=== PATIENT | female | born 1940 | race Caucasian/White ===

== ENCOUNTER 2016-12-30 05:33 | Day surgery (SDC) | payer MEDICARE, OTHER, SELFPAY ==
[2016-12-30] MEDS ORDERED: Midazolam 1 MG/ML 2 ML SDV ONE (06:17)
[2016-12-30] MEDS ORDERED: fentaNYL 100 MCG/2 ML SDV ONE (06:18)
[2016-12-30] MEDS ORDERED: fentaNYL 100 MCG/2 ML SDV IV ONE ×3 (06:31→16:10)
[2016-12-30] MEDS ORDERED: Midazolam 1 MG/ML 2 ML SDV IV ONE ×7 (06:32→16:10)
[2016-12-30] MEDS ORDERED: Sodium Chloride 0.9% 10 ML Syringe FLUSH PRN (07:00)
[2016-12-30] MEDS ORDERED: Dextrose 5%-0.45% NaCl 1,000 ML IV SCH (07:00)
--- NOTE | 2016-12-30 08:27 | OR ---
DATE: 12/30/2016 PROCEDURES: Total colonoscopy and cold snare polypectomy. INSTRUMENT USED: CF-H180 AL Olympus video colonoscope. PREMEDICATIONS: Fentanyl 100 mcg intravenous, Versed 4 mg intravenous. Nasal O2 cannula. The procedure was done under pulse oximetry, BP recording, and joint cleaning machine operator. INDICATION: The patient with previous right colon cancer resection and multiple _polyps.. Colonoscopy examination is done for detection of any polypoid lesions and removal, endoscopic hemostasis therapy if needed. DESCRIPTION OF PROCEDURE: Initial rectal exam showed anal sphincter to be a bit lax Rigid anoscopy showed small internal hemorrhoids without bleeding from them. The colonoscope was passed with ease. Numerous scattered diverticula were noted in the colon more so in the distal left colon along with deformity. The scope was passed with ease up to the area of previous surgery, photographs were taken of the area, no bleeding was noted from any of the visualized areas at the commencement of the examination. No vascular ectasia. No large isolated ulcerations seen. No evidence of diffuse inflammatory bowel disease in the form of friability, contact bleeding, or ulcerations. Probing the proximal sides of folds and flexures, using adequate distention and clearing up the stool material, withdrawal of the scope was made. The examination was compromised in a few areas due to the presence of adherent solid fecal material that could not be aspirated clear. In the sigmoid colon at around 18 cm proximal to the anal verge, more than 1 cm sized sessile polyp was noted, photographs were taken, snare polypectomy was done, the tissues were retrieved and sent for histopathology. No bleeding was noted from any of the visualized areas at the completion of examination. IMPRESSION: 1. Internal hemorrhoids. 2. Diverticulosis. 3. Sigmoid colonic polyp. The patient tolerated the procedure well. [facility] /[id number] ALEXIS
--- NOTE | 2016-12-30 08:53 | LETTER ---
12/30/2016 Jennifer Mane [employer]ANK [employer]ACHINE [employer]CH[employer]IC [address], [address] [place] [address] RE: DAPHNE MILLY Warren : 1940 Dear Ms. Mane: Ms. Milly Ramachandranjethroespinoza had colonoscopic examination done this morning and she tolerated the procedure well. I herewith send a copy of the endoscopy note and photographs for your review. Thank you. Sincerely, [facility] /[id number]
[2016-12-30 10:49] VITALS: BP 105/65
== END 2017-01-04 09:15 | disposition home or self-care (01) ==
LOC: DL.ENDO 05:33
PROVIDERS: ATTEND Internal Medicine Gastroenterology
DX: Z12.11 Encounter for screening for malignant neoplasm of colon (principal); D12.5 Benign neoplasm of sigmoid colon; K64.8 Other hemorrhoids; I10 Essential (primary) hypertension; E66.9 Obesity, unspecified; E78.5 Hyperlipidemia, unspecified; E11.9 Type 2 diabetes mellitus without complications; Z90.49 Acquired absence of other specified parts of digestive tract
CPT/HCPCS: 45385; J2250; J3010; J7042; 88305

== ENCOUNTER 2018-03-03 07:06 | Day surgery (SDC) | payer MEDICARE, MEDICAID ==
[~2018-03-03 07:06] MED LIST: Dextrose 5%-0.45% NaCl 1,000 ML IV SCH; Midazolam 1 MG/ML 2 ML SDV ONE; Sodium Chloride 0.9% 10 ML Syringe FLUSH PRN; fentaNYL 100 MCG/2 ML SDV ONE
[2018-03-03] MEDS ORDERED: fentaNYL 100 MCG/2 ML SDV IV ONE ×3 (07:07→07:50)
[2018-03-03] MEDS ORDERED: Midazolam 1 MG/ML 2 ML SDV IV ONE ×6 (07:07→08:12)
--- NOTE | 2018-03-03 09:06 | OR ---
DATE: 03/03/2018 PROCEDURES PERFORMED: Total colonoscopy, NBI, and cold snare polypectomy. INSTRUMENT USED: PCF-H180AL Olympus videocolonoscope. PREMEDICATIONS: Fentanyl 100 mcg intravenous and Versed 3 mg intravenous. Nasal O2 cannula. The procedure was done under pulse oximetry, BP recording, and radiation monitor. INDICATION: The patient with previous colon resection for cancer and sessile sigmoid polyp removed before, recently found to be anemic. Colonoscopic examination is done for detection of any polypoid lesions and removal, endoscopic hemostasis therapy if needed. DESCRIPTION OF PROCEDURE: Initial rectal exam was unremarkable. Rigid anoscopy was normal. The colonoscope was passed with ease up to the area of cecum, area of previous surgical resection noted, photographs were taken. No bleeding was noted from any of the visualized areas at the commencement of the examination. In the distal rectum, a 5 mm sized benign-appearing polyp was noted, photograph was taken, NBI views were obtained, cold snare polypectomy was done, the tissue was retrieved and sent for histopathology. Few diverticula were noted in the distal left colon along with significant deformity. No vascular ectasia. No large isolated ulcerations seen. No evidence of diffuse inflammatory bowel disease in the form of friability, contact bleeding, or ulcerations. Probing the proximal sides of folds and flexures, using adequate distention and clearing of the stool material, withdrawal of the scope was made. No bleeding was noted from any of the visualized areas at the completion of examination. IMPRESSION: 1. Rectal polyp. 2. Diverticulosis. The patient tolerated the procedure well. [facility] /[id number]
[2018-03-03 10:39] VITALS: BP 125/59
--- NOTE | 2018-03-03 12:07 | LETTER ---
03/03/2018 Jennifer Mane [employer] EDGE BEVELER [address], [address] [place] [address] RE: DAPHNESALVATOREMILLY E : 1940 Dear Ms. Mane: Ms. Milly Ramachandranjtehroespinoza had colonoscopic examination done this morning and she tolerated the procedure well. I herewith send a copy of the endoscopy note and photographs for your review. Thank you. Sincerely, [facility] /[id number]
== END 2018-03-03 10:24 | disposition home or self-care (01) ==
LOC: DL.ENDO 07:06
PROVIDERS: ATTEND Internal Medicine Gastroenterology
DX: D64.9 Anemia, unspecified (principal); D12.8 Benign neoplasm of rectum; K57.30 Diverticulosis of large intestine without perforation or abscess without bleeding; I10 Essential (primary) hypertension; E11.9 Type 2 diabetes mellitus without complications; E66.09 Other obesity due to excess calories; C18.9 Malignant neoplasm of colon, unspecified; E78.5 Hyperlipidemia, unspecified; F41.1 Generalized anxiety disorder; Z86.010 Personal history of colon polyps; Z90.49 Acquired absence of other specified parts of digestive tract
CPT/HCPCS: 45385; J2250; J3010; J7042

== ENCOUNTER 2024-07-11 10:11 | Inpatient (IN) | payer MEDICARE, MEDICAID ==
[2024-07-11 10:38] LABS: HEMATOCRIT 40.7 % (37.0-47.0); HEMOGLOBIN 13.5 g/dL (12.0-16.0); MEAN CORPUSCULAR HEMOGLOBIN 29.3 pg (27.0-34.0); MEAN CORPUSCULAR HGB CONC 33.2 g/dL (33.0-35.0); MEAN CORPUSCULAR VOLUME 88.3 fL (80-100); PLATELET COUNT,PLT 245 10^3/uL (150-450); RED BLOOD CELL COUNT 4.61 10^6/uL (4.2-5.4); WHITE BLOOD CELL COUNT,WBC 8.6 10^3/uL (5.0-10.0)
[2024-07-11 10:52] LABS: BASOPHILS PERCENT AUTO 0.3 % (0.0-1.0); LYMPHOCYTES PERCENT AUTO 14.7 % (20.5-50.1); MONOCYTES PERCENT AUTO 12.6 % (2-8); NEUTROPHILS PERCENT AUTO 70.4 % (42.2-75.2)
[2024-07-11 10:55] LABS: INR 1.1 (0.9-1.2)
[2024-07-11 10:56] LABS: APPEARANCE,URINE CLOUDY (CLEAR); BILIRUBIN,URINE NEGATIVE (NEGATIVE); COLOR,URINE YELLOW (YELLOW); GLUCOSE,URINE NEGATIVE (NEGATIVE); KETONES,URINE NEGATIVE (NEGATIVE); LEUKOCYTE ESTERASE,URINE LARGE (NEGATIVE); NITRITE,URINE NEGATIVE (NEGATIVE); OCCULT BLOOD,URINE MODERATE (NEGATIVE); PH,URINE 5.5 (5.0-9.0); PROTEIN,URINE 100 (NEGATIVE); UROBILINOGEN,URINE 0.2 mg/dL (0.2-1.0)
[2024-07-11 10:56] LABS: C-REACTIVE PROTEIN 10.78 ng/dL (<=0.50); MAGNESIUM 1.7 mg/dL (1.8-2.4)
[2024-07-11 11:01] LABS: A/G RATIO 0.47; ALANINE AMINOTRANSFERASE,ALT 23 U/L (14-59); ALBUMIN 2.3 g/dL (3.4-5.0); ALKALINE PHOSPHATASE 69 U/L (46-116); ANION GAP 14.3 mEq/L (7-13); ASPARTATE AMNIOTRANSFERASE,AST 27 U/L (15-37); BLOOD UREA NITROGEN,BUN 33 mg/dL (7-18); BUN/CREATININE RATIO 27.5 (No establ ref range); CALCIUM 9.2 mg/dL (8.5-10.1); CARBON DIOXIDE,CO2 28 mmol/L (21-32); CHLORIDE,CL 96 mmol/L (98-107); ESTIMATED GFR 45 mL/min (>=60); GLUCOSE RANDOM 239 mg/dL (70-99); POTASSIUM,K 3.3 mmol/L (3.5-5.1); PROTEIN TOTAL,TP 7.2 g/dL (6.4-8.2); SODIUM,NA 135 mmol/L (136-145)
[2024-07-11 11:06] LABS: LACTIC ACID 1.9 mmol/L (0.4-2.0)
[2024-07-11] MEDS: Sodium Chloride 0.9% 1,000 ML IV ONE (11:20)
[2024-07-11] MEDS: Potassium Chloride 10 MEQ Tab.ER PO ONE (11:23)
[2024-07-11 11:30] LABS: BASOPHILS PERCENT MAN 1; EOSINOPHILS PERCENT MAN 4 % (1-3); GIANT PLATELETS FEW; LYMPHOCYTES PERCENT MAN 10 % (20-50); MONOCYTES PERCENT MAN 10 % (2-8); PLATELET COUNT ESTIMATE ADEQUATE; SEG NEUTROPHILS PERCENT MAN 75 % (42-75)
[2024-07-11 11:37] LABS: AMORPHOUS SEDIMENT,URINE FEW /HPF (NOT SEEN); BACTERIA,URINE FEW /HPF (0-FEW/HPF); EPITHELIAL CELLS,URINE MODERATE /HPF (NOT SEEN); MUCUS,URINE FEW /LPF (NOT SEEN); WBC,URINE PACKED /HPF (0-5/HPF)
[2024-07-11] MEDS ORDERED: Polyethylene Glycol 3350 Powder 17 GM Packet PO PRN (13:07)
[2024-07-11] MEDS ORDERED: Acetaminophen 325 MG Tab PO PRN (13:07)
[2024-07-11] MEDS ORDERED: Ondansetron 4 MG/2 ML SDV IVPUSH PRN (13:07)
[2024-07-11] MEDS ORDERED: Docusate Sodium 100 MG Cap PO PRN (13:07)
[2024-07-11] MEDS: cefTRIAXone 1 GM Vial IVPUSH SCH (14:49)
[2024-07-11] MEDS: Pantoprazole 40 MG Vial IVPUSH SCH (14:49)
[2024-07-11] MEDS: Enoxaparin 40 MG/0.4 ML Syringe SUBCUT SCH (14:49)
[2024-07-11] MEDS: Magnesium Sulfate/Water Premix 2 GM in Premix Bag 1 BAG IV ONE (14:49)
[2024-07-11] MEDS: Sodium Chloride 0.9% 1,000 ML IV SCH (15:08)
[2024-07-12 06:05] LABS: EOSINOPHILS PERCENT AUTO 3.1 % (1.0-3.0); HEMATOCRIT 36.8 % (37.0-47.0); HEMOGLOBIN 12.1 g/dL (12.0-16.0); MEAN CORPUSCULAR HEMOGLOBIN 29.4 pg (27.0-34.0); MEAN CORPUSCULAR HGB CONC 32.9 g/dL (33.0-35.0); MEAN CORPUSCULAR VOLUME 89.3 fL (80-100); NEUTROPHILS PERCENT AUTO 73.7 % (42.2-75.2); PLATELET COUNT,PLT 232 10^3/uL (150-450); RED BLOOD CELL COUNT 4.12 10^6/uL (4.2-5.4); WHITE BLOOD CELL COUNT,WBC 8.1 10^3/uL (5.0-10.0)
[2024-07-12 06:16] LABS: BASOPHILS PERCENT AUTO 0.2 % (0.0-1.0)
[2024-07-12 06:26] LABS: ALBUMIN 1.9 g/dL (3.4-5.0); ANION GAP 10.6 mEq/L (7-13); BILIRUBIN TOTAL 0.6 mg/dL (0.2-1.0); BUN/CREATININE RATIO 27.5 (No establ ref range); C-REACTIVE PROTEIN 7.8 ng/dL (<=0.50); CALCIUM 8.4 mg/dL (8.5-10.1); CREATININE 0.91 mg/dL (0.55-1.02); EST CRCL DRUG DOSING (CG) 48.09 mL/min; MAGNESIUM 1.9 mg/dL (1.8-2.4); POTASSIUM,K 3.6 mmol/L (3.5-5.1); PROTEIN TOTAL,TP 6.2 g/dL (6.4-8.2)
[2024-07-12 06:27] LABS: A/G RATIO 0.44
[2024-07-12] MEDS: REMDESIVIR 200 MG in Sodium Chloride 0.9% 250 ML IV ONE (07:38)
[2024-07-12] MEDS: Dexamethasone 6 MG TABLET PO SCH (07:39)
[2024-07-12] MEDS: Azithromycin 500 MG in Sodium Chloride 0.9% 250 ML IV SCH (09:44)
[2024-07-12] MEDS: cefTRIAXone 1 GM Vial IVPUSH SCH (09:45)
[2024-07-12] MEDS: guaiFENesin 600 MG Tab.ER PO ONE (10:18)
[2024-07-12] MEDS: guaiFENesin 600 MG Tab.ER PO SCH (21:43)
[2024-07-13] MEDS: REMDESIVIR 100 MG in Sodium Chloride 0.9% 100 ML IV SCH (05:43)
[2024-07-13 06:24] LABS: HEMATOCRIT 35.1 % (37.0-47.0); HEMOGLOBIN 11.5 g/dL (12.0-16.0); MEAN CORPUSCULAR HEMOGLOBIN 29.2 pg (27.0-34.0); MEAN CORPUSCULAR HGB CONC 32.8 g/dL (33.0-35.0); MEAN CORPUSCULAR VOLUME 89.1 fL (80-100); PLATELET COUNT,PLT 253 10^3/uL (150-450); RED BLOOD CELL COUNT 3.94 10^6/uL (4.2-5.4); WHITE BLOOD CELL COUNT,WBC 7.4 10^3/uL (5.0-10.0)
[2024-07-13 06:27] LABS: LYMPHOCYTES PERCENT AUTO 9.6 % (20.5-50.1); MONOCYTES PERCENT AUTO 12.6 % (2-8); NEUTROPHILS PERCENT AUTO 77.7 % (42.2-75.2)
[2024-07-13 06:28] LABS: BASOPHILS PERCENT AUTO 0.1 % (0.0-1.0)
[2024-07-13 06:48] LABS: ALBUMIN 1.9 g/dL (3.4-5.0); ANION GAP 12.1 mEq/L (7-13); BILIRUBIN TOTAL 0.4 mg/dL (0.2-1.0); CALCIUM 8.4 mg/dL (8.5-10.1); CREATININE 0.96 mg/dL (0.55-1.02); EST CRCL DRUG DOSING (CG) 45.59 mL/min; POTASSIUM,K 4.1 mmol/L (3.5-5.1); PROTEIN TOTAL,TP 6.1 g/dL (6.4-8.2)
[2024-07-13 06:50] LABS: A/G RATIO 0.45
[2024-07-13 07:04] LABS: ATYPICAL LYMPHOCYTES MODERATE; LYMPHOCYTES PERCENT MAN 8 % (20-50); MONOCYTES PERCENT MAN 10 % (2-8); PLATELET COUNT ESTIMATE ADEQUATE; SEG NEUTROPHILS PERCENT MAN 82 % (42-75)
[2024-07-13] MEDS ORDERED: Loperamide 2 MG Cap PO PRN (16:03)
[2024-07-13] MEDS: Saccharomyces Boulardii (Probiotic) 250 MG Cap PO SCH (22:15)
[2024-07-14] MEDS: Sodium Chloride 0.9% 10 ML Syringe FLUSH PRN (06:15)
[2024-07-14 06:28] LABS: BASOPHILS PERCENT AUTO 0.2 % (0.0-1.0); EOSINOPHILS PERCENT AUTO 0.1 % (1.0-3.0); HEMATOCRIT 37.4 % (37.0-47.0); HEMOGLOBIN 12.4 g/dL (12.0-16.0); MEAN CORPUSCULAR HEMOGLOBIN 28.8 pg (27.0-34.0); MEAN CORPUSCULAR HGB CONC 33.2 g/dL (33.0-35.0); MONOCYTES PERCENT AUTO 11.8 % (2-8); NEUTROPHILS PERCENT AUTO 78.9 % (42.2-75.2); PLATELET COUNT,PLT 291 10^3/uL (150-450)
[2024-07-14 06:56] LABS: ALBUMIN 2.2 g/dL (3.4-5.0); ANION GAP 12.4 mEq/L (7-13); BILIRUBIN TOTAL 0.4 mg/dL (0.2-1.0); BUN/CREATININE RATIO 30.5 (No establ ref range); C-REACTIVE PROTEIN 3.91 ng/dL (<=0.50); CALCIUM 8.9 mg/dL (8.5-10.1); CREATININE 0.95 mg/dL (0.55-1.02); EST CRCL DRUG DOSING (CG) 46.07 mL/min; POTASSIUM,K 4.4 mmol/L (3.5-5.1); PROTEIN TOTAL,TP 6.8 g/dL (6.4-8.2)
[2024-07-14 07:01] LABS: A/G RATIO 0.48
[2024-07-14] MEDS: Famotidine 20 MG Tab PO SCH (09:24)
[2024-07-14] MEDS ORDERED: 50% Dextrose in Water 50 ML Syringe IVPUSH PRN (12:09)
[2024-07-14] MEDS ORDERED: Glucagon,Human Recombinant 1 MG Vial IM PRN (12:09)
[2024-07-14] MEDS ORDERED: hydrALAZINE 20 MG/ML SDV IVPUSH PRN (12:10)
[2024-07-14] MEDS: Hydrochlorothiazide/Triamterene 25-37.5 Tab PO ONE (12:36)
[2024-07-14] MEDS: Insulin Lispro 100 Units/ML 3 ML Vial SUBCUT SCH (17:12)
[2024-07-14] MEDS: Melatonin 3 MG Tab PO PRN (20:23)
[2024-07-15 06:55] LABS: HEMATOCRIT 36.7 % (37.0-47.0); HEMOGLOBIN 12.3 g/dL (12.0-16.0); MEAN CORPUSCULAR HEMOGLOBIN 29.1 pg (27.0-34.0); MEAN CORPUSCULAR HGB CONC 33.5 g/dL (33.0-35.0); PLATELET COUNT,PLT 299 10^3/uL (150-450); RED BLOOD CELL COUNT 4.22 10^6/uL (4.2-5.4)
[2024-07-15 06:59] LABS: BASOPHILS PERCENT AUTO 0.2 % (0.0-1.0); EOSINOPHILS PERCENT AUTO 0.2 % (1.0-3.0); LYMPHOCYTES PERCENT AUTO 11.4 % (20.5-50.1); MONOCYTES PERCENT AUTO 15.7 % (2-8); NEUTROPHILS PERCENT AUTO 72.5 % (42.2-75.2)
[2024-07-15 07:09] LABS: ALBUMIN 2.3 g/dL (3.4-5.0); ANION GAP 11.3 mEq/L (7-13); BILIRUBIN TOTAL 0.4 mg/dL (0.2-1.0); BUN/CREATININE RATIO 30.1 (No establ ref range); C-REACTIVE PROTEIN 2.4 ng/dL (<=0.50); CALCIUM 9.1 mg/dL (8.5-10.1); CREATININE 1.03 mg/dL (0.55-1.02); EST CRCL DRUG DOSING (CG) 42.49 mL/min; POTASSIUM,K 4.3 mmol/L (3.5-5.1); PROTEIN TOTAL,TP 6.6 g/dL (6.4-8.2)
[2024-07-15 07:15] LABS: A/G RATIO 0.53
[2024-07-15 07:45] LABS: LYMPHOCYTES PERCENT MAN 13 % (20-50); MONOCYTES PERCENT MAN 12 % (2-8); SEG NEUTROPHILS PERCENT MAN 75 % (42-75)
[2024-07-15] MEDS: Hydrochlorothiazide/Triamterene 25-37.5 Tab PO SCH (08:52)
[2024-07-16 06:30] LABS: BASOPHILS PERCENT AUTO 0.2 % (0.0-1.0); EOSINOPHILS PERCENT AUTO 0.4 % (1.0-3.0); HEMATOCRIT 37.9 % (37.0-47.0); HEMOGLOBIN 12.7 g/dL (12.0-16.0); LYMPHOCYTES PERCENT AUTO 10.6 % (20.5-50.1); MEAN CORPUSCULAR HEMOGLOBIN 28.9 pg (27.0-34.0); MEAN CORPUSCULAR HGB CONC 33.5 g/dL (33.0-35.0); MEAN CORPUSCULAR VOLUME 86.1 fL (80-100); MONOCYTES PERCENT AUTO 15.1 % (2-8); NEUTROPHILS PERCENT AUTO 73.7 % (42.2-75.2); PLATELET COUNT,PLT 283 10^3/uL (150-450); WHITE BLOOD CELL COUNT,WBC 10.5 10^3/uL (5.0-10.0)
[2024-07-16 07:02] LABS: ALBUMIN 2.4 g/dL (3.4-5.0); ANION GAP 11.3 mEq/L (7-13); BILIRUBIN DIRECT 0.1 mg/dL (0.0-0.2); BILIRUBIN TOTAL 0.4 mg/dL (0.2-1.0); BUN/CREATININE RATIO 33.3 (No establ ref range); C-REACTIVE PROTEIN 1.55 ng/dL (<=0.50); CREATININE 1.08 mg/dL (0.55-1.02); EST CRCL DRUG DOSING (CG) 40.52 mL/min; POTASSIUM,K 4.3 mmol/L (3.5-5.1); PROTEIN TOTAL,TP 6.4 g/dL (6.4-8.2)
[2024-07-16 07:30] LABS: A/G RATIO 0.6
[2024-07-17 07:00] LABS: HEMATOCRIT 38.3 % (37.0-47.0); MEAN CORPUSCULAR HGB CONC 33.9 g/dL (33.0-35.0); MEAN CORPUSCULAR VOLUME 85.3 fL (80-100); PLATELET COUNT,PLT 310 10^3/uL (150-450); RED BLOOD CELL COUNT 4.49 10^6/uL (4.2-5.4); WHITE BLOOD CELL COUNT,WBC 12.6 10^3/uL (5.0-10.0)
[2024-07-17 07:06] LABS: BASOPHILS PERCENT AUTO 0.1 % (0.0-1.0); EOSINOPHILS PERCENT AUTO 0.3 % (1.0-3.0); LYMPHOCYTES PERCENT AUTO 11.6 % (20.5-50.1); MONOCYTES PERCENT AUTO 14.8 % (2-8); NEUTROPHILS PERCENT AUTO 73.2 % (42.2-75.2)
[2024-07-17 07:38] LABS: ALBUMIN 2.4 g/dL (3.4-5.0); ANION GAP 13.2 mEq/L (7-13); BILIRUBIN TOTAL 0.5 mg/dL (0.2-1.0); BUN/CREATININE RATIO 37.6 (No establ ref range); C-REACTIVE PROTEIN 1.13 ng/dL (<=0.50); CALCIUM 8.9 mg/dL (8.5-10.1); CREATININE 1.17 mg/dL (0.55-1.02); EST CRCL DRUG DOSING (CG) 37.41 mL/min; POTASSIUM,K 4.2 mmol/L (3.5-5.1); PROTEIN TOTAL,TP 6.4 g/dL (6.4-8.2)
[2024-07-17 07:39] LABS: A/G RATIO 0.6
[2024-07-17 07:47] LABS: BAND PERCENT MAN 2 %; LYMPHOCYTES PERCENT MAN 13 % (20-50); MONOCYTES PERCENT MAN 9 % (2-8); SEG NEUTROPHILS PERCENT MAN 76 % (42-75)
[2024-07-17] MEDS ORDERED: Menthol/Zinc Oxide Ointment 113 GM Tube TOP PRN (17:51)
[2024-07-18 06:38] LABS: HEMATOCRIT 40.8 % (37.0-47.0); HEMOGLOBIN 13.6 g/dL (12.0-16.0); MEAN CORPUSCULAR HEMOGLOBIN 29.1 pg (27.0-34.0); MEAN CORPUSCULAR HGB CONC 33.3 g/dL (33.0-35.0); MEAN CORPUSCULAR VOLUME 87.2 fL (80-100); PLATELET COUNT,PLT 270 10^3/uL (150-450); RED BLOOD CELL COUNT 4.68 10^6/uL (4.2-5.4); WHITE BLOOD CELL COUNT,WBC 12.9 10^3/uL (5.0-10.0)
[2024-07-18 06:51] LABS: BASOPHILS PERCENT AUTO 0.2 % (0.0-1.0); EOSINOPHILS PERCENT AUTO 0.5 % (1.0-3.0); LYMPHOCYTES PERCENT AUTO 9.5 % (20.5-50.1); NEUTROPHILS PERCENT AUTO 75.8 % (42.2-75.2)
[2024-07-18 07:01] LABS: ALBUMIN 2.6 g/dL (3.4-5.0); ANION GAP 11.8 mEq/L (7-13); BILIRUBIN TOTAL 0.7 mg/dL (0.2-1.0); CALCIUM 9.6 mg/dL (8.5-10.1); CREATININE 1.29 mg/dL (0.55-1.02); EST CRCL DRUG DOSING (CG) 33.93 mL/min; POTASSIUM,K 4.8 mmol/L (3.5-5.1); PROTEIN TOTAL,TP 6.6 g/dL (6.4-8.2)
[2024-07-18 07:02] LABS: A/G RATIO 0.65
[2024-07-18 07:53] LABS: LYMPHOCYTES PERCENT MAN 12 % (20-50); MONOCYTES PERCENT MAN 10 % (2-8); SEG NEUTROPHILS PERCENT MAN 78 % (42-75)
[2024-07-18] MEDS: Sodium Chloride 0.9% 1,000 ML IV SCH (11:45)
[2024-07-18 12:27] VITALS: PULSE 78
[2024-07-18 17:20] VITALS: BP 140/86
[2024-07-19] MEDS ORDERED: Hydrochlorothiazide/Triamterene 25-37.5 Tab PO SCH (09:00)
[2024-07-20] MEDS ORDERED: Hydrochlorothiazide/Triamterene 25-37.5 Tab PO SCH (09:00)
== END 2024-07-18 14:00 | disposition swing bed (61) | DRG 177 ==
LOC: DL.ED 10:11 → DL.MS 11:32 → DL.ED 11:56 → DL.MS 12:39
PROVIDERS: ADMIT Internal Medicine; ATTEND Internal Medicine
PROC: XW033E5 Introduction of Remdesivir Anti-infective into Peripheral Vein, Percutaneous Approach, New Technology Group 5 (ICD-10-PCS; principal; 2024-07-12)
DX: U07.1 COVID-19 (principal); R53.1 Weakness; J12.82 Pneumonia due to coronavirus disease 2019; I10 Essential (primary) hypertension; E87.0 Hyperosmolality and hypernatremia; E11.9 Type 2 diabetes mellitus without complications; N39.0 Urinary tract infection, site not specified; N17.9 Acute kidney failure, unspecified; Z79.899 Other long term (current) drug therapy; E11.65 Type 2 diabetes mellitus with hyperglycemia; E86.0 Dehydration; E66.9 Obesity, unspecified; E78.00 Pure hypercholesterolemia, unspecified; H54.7 Unspecified visual loss; H91.90 Unspecified hearing loss, unspecified ear; E87.6 Hypokalemia; E83.42 Hypomagnesemia; E11.22 Type 2 diabetes mellitus with diabetic chronic kidney disease; D50.9 Iron deficiency anemia, unspecified; I12.9 Hypertensive chronic kidney disease with stage 1 through stage 4 chronic kidney disease, or unspecified chronic kidney disease; N18.9 Chronic kidney disease, unspecified; B96.20 Unspecified Escherichia coli [E. coli] as the cause of diseases classified elsewhere; Z88.8 Allergy status to other drugs, medicaments and biological substances; Z98.49 Cataract extraction status, unspecified eye; Z68.30 Body mass index [BMI] 30.0-30.9, adult; Z79.82 Long term (current) use of aspirin; Z98.890 Other specified postprocedural states; Z86.0100 Personal history of colon polyps, unspecified
CPT/HCPCS: 36415; 70450; 72125; 80053; 81001; 83605; 83735; 84484; 85025; 85610; 86140; 87040 ×2; 87086; 87088; 87186 ×2; 87804 ×2; 93005 ×2; 93010; 99285 ×2; A9270; J7030; U0002; 71046; 71250; 82248; 82947; 87045; 87046; 87328; 87329; 87493; 87899; 97110-GP; 97161-GP; 97165-GO; 97530-GO; 97530-GP; 99223; 99232; 99238; J0248; J0456; J0696; J1650; J1815-GY; J2470; J3475; J3490; J7050; J8540

== ENCOUNTER 2024-07-18 09:17 | Inpatient (IN) | payer MEDICARE, MEDICAID ==
[2024-07-18] MEDS ORDERED: Sodium Chloride 0.9% 1,000 ML IV SCH (13:51)
[2024-07-18] MEDS ORDERED: Ondansetron 4 MG/2 ML SDV IVPUSH PRN (13:51)
[2024-07-18] MEDS ORDERED: 50% Dextrose in Water 50 ML Syringe IVPUSH PRN (13:51)
[2024-07-18] MEDS ORDERED: Glucagon,Human Recombinant 1 MG Vial IM PRN ×2 (13:51)
[2024-07-18] MEDS ORDERED: Sodium Chloride 0.9% 10 ML Syringe FLUSH PRN (13:51)
[2024-07-18] MEDS ORDERED: Polyethylene Glycol 3350 Powder 17 GM Packet PO PRN (13:51)
[2024-07-19] MEDS: Insulin Lispro 100 Units/ML 3 ML Vial SUBCUT SCH (00:27)
[2024-07-19] MEDS: Sodium Chloride 0.9% 10 ML Syringe FLUSH SCH (00:28)
[2024-07-19] MEDS: Enoxaparin 40 MG/0.4 ML Syringe SUBCUT SCH (10:41)
[2024-07-19] MEDS: Famotidine 20 MG Tab PO SCH (10:41)
[2024-07-20 06:37] LABS: CALCIUM 8.7 mg/dL (8.5-10.1); CREATININE 1.18 mg/dL (0.55-1.02); EST CRCL DRUG DOSING (CG) 37.09 mL/min
[2024-07-20] MEDS: metFORMIN 500 MG Tab PO ONE (12:01)
[2024-07-20] MEDS: Glimepiride 2 MG Tab PO SCH (17:47)
[2024-07-20] MEDS ORDERED: Glimepiride 2 MG Tab PO SCH (18:00)
[2024-07-21] MEDS: Menthol/Zinc Oxide Ointment 113 GM Tube TOP PRN (01:00)
[2024-07-21] MEDS ORDERED: Glimepiride 2 MG Tab PO SCH (09:00)
[2024-07-21] MEDS ORDERED: metFORMIN 500 MG Tab PO SCH (09:00)
[2024-07-21] MEDS: metFORMIN 500 MG Tab PO SCH (10:29)
[2024-07-21] MEDS: Loperamide 2 MG Cap PO PRN (23:20)
[2024-07-22] MEDS: Glimepiride 2 MG Tab PO SCH (18:23)
[2024-07-24 06:37] LABS: A/G RATIO 0.39; ALBUMIN 1.6 g/dL (3.4-5.0); ANION GAP 7.7 mEq/L (7-13); BILIRUBIN TOTAL 1.1 mg/dL (0.2-1.0); BUN/CREATININE RATIO 18.3 (No establ ref range); CALCIUM 8.5 mg/dL (8.5-10.1); CREATININE 0.71 mg/dL (0.55-1.02); EST CRCL DRUG DOSING (CG) 61.64 mL/min; POTASSIUM,K 3.7 mmol/L (3.5-5.1); PROTEIN TOTAL,TP 5.7 g/dL (6.4-8.2)
[2024-07-24 06:39] LABS: MAGNESIUM 0.9 mg/dL (1.8-2.4)
[2024-07-24] MEDS: Magnesium Sulfate/Water Premix 2 GM in Premix Bag 1 BAG IV ONE ×3 (08:07→17:24)
[2024-07-24 17:17] LABS: ANION GAP 6.3 mEq/L (7-13); CALCIUM 8.7 mg/dL (8.5-10.1); CREATININE 0.86 mg/dL (0.55-1.02); EST CRCL DRUG DOSING (CG) 50.89 mL/min; POTASSIUM,K 4.3 mmol/L (3.5-5.1)
[2024-07-24] MEDS: Glimepiride 2 MG Tab PO SCH (17:24)
[2024-07-24] MEDS: Melatonin 3 MG Tab PO PRN (21:36)
[2024-07-24] MEDS: Bumetanide 1 MG Tab PO SCH (21:36)
[2024-07-25] MEDS: Acetaminophen 325 MG Tab PO PRN (03:28)
[2024-07-25 07:29] VITALS: BP 114/48; PULSE 82
== END 2024-07-25 09:30 | DRG 948 ==
LOC: DL.MS 20:26
PROVIDERS: ADMIT Internal Medicine; ATTEND Internal Medicine
DX: R53.1 Weakness (principal); I10 Essential (primary) hypertension; D50.9 Iron deficiency anemia, unspecified; E55.9 Vitamin D deficiency, unspecified; G31.84 Mild cognitive impairment of uncertain or unknown etiology; H91.90 Unspecified hearing loss, unspecified ear; H54.7 Unspecified visual loss; E78.00 Pure hypercholesterolemia, unspecified; E66.9 Obesity, unspecified; R29.6 Repeated falls; I27.20 Pulmonary hypertension, unspecified; E11.65 Type 2 diabetes mellitus with hyperglycemia; I35.8 Other nonrheumatic aortic valve disorders; R91.1 Solitary pulmonary nodule; Z85.038 Personal history of other malignant neoplasm of large intestine; Z86.0100 Personal history of colon polyps, unspecified; Z88.8 Allergy status to other drugs, medicaments and biological substances; Z68.30 Body mass index [BMI] 30.0-30.9, adult; Z86.16 Personal history of COVID-19; Z98.890 Other specified postprocedural states
CPT/HCPCS: 36415; 51702; 80048; 80053; 82947; 83036; 83735; 97110-GP; 97116-GP; 97161-GP; 97165-GO; 97530-GO; 97530-GP; 97535-GO; 99305; 99309; 99315; A9270-GY; J1650; J3475; J3490

== ENCOUNTER 2025-02-26 12:59 | Emergency (ER) | payer MEDICARE, MEDICAID ==
[2025-02-26 13:23] LABS: HEMATOCRIT 29.8 % (37.0-47.0); HEMOGLOBIN 9.6 g/dL (12.0-16.0); MEAN CORPUSCULAR HEMOGLOBIN 26.9 pg (27.0-34.0); MEAN CORPUSCULAR HGB CONC 32.2 g/dL (33.0-35.0); MEAN CORPUSCULAR VOLUME 83.5 fL (80-100); PLATELET COUNT,PLT 635 10^3/uL (150-450); RED BLOOD CELL COUNT 3.57 10^6/uL (4.2-5.4); WHITE BLOOD CELL COUNT,WBC 21.5 10^3/uL (5.0-10.0)
[2025-02-26 13:39] LABS: BASOPHILS PERCENT AUTO 0.1 % (0.0-1.0); EOSINOPHILS PERCENT AUTO 0.5 % (1.0-3.0); LYMPHOCYTES PERCENT AUTO 7.8 % (20.5-50.1); MONOCYTES PERCENT AUTO 7.8 % (2-8); NEUTROPHILS PERCENT AUTO 83.8 % (42.2-75.2)
[2025-02-26 13:43] LABS: ALANINE AMINOTRANSFERASE,ALT 40 U/L (14-59); ALBUMIN 1.4 g/dL (3.4-5.0); ALKALINE PHOSPHATASE 154 U/L (46-116); ANION GAP 13.2 mEq/L (7-13); ASPARTATE AMNIOTRANSFERASE,AST 36 U/L (15-37); BILIRUBIN TOTAL 0.5 mg/dL (0.2-1.0); BLOOD UREA NITROGEN,BUN 44 mg/dL (7-18); BUN/CREATININE RATIO 32.6 (No establ ref range); C-REACTIVE PROTEIN 22.69 ng/dL (<=0.50); CALCIUM 9.9 mg/dL (8.5-10.1); CARBON DIOXIDE,CO2 26 mmol/L (21-32); CHLORIDE,CL 93 mmol/L (98-107); CREATININE 1.35 mg/dL (0.55-1.02); GLUCOSE RANDOM 168 mg/dL (70-99); MAGNESIUM 1.1 mg/dL (1.8-2.4); POTASSIUM,K 4.2 mmol/L (3.5-5.1); PROTEIN TOTAL,TP 7.7 g/dL (6.4-8.2); SODIUM,NA 128 mmol/L (136-145)
[2025-02-26 13:44] LABS: A/G RATIO 0.22; ESTIMATED GFR 39 mL/min (>=60)
[2025-02-26 13:46] LABS: LACTIC ACID 1.2 mmol/L (0.4-2.0)
[2025-02-26] MEDS: Iopamidol 612 MG/ML 100 ML Bottle IVPUSH ONE (14:16)
[2025-02-26] MEDS: Lactated Ringers 1,000 ML IV SCH (14:19)
[2025-02-26 14:20] LABS: LYMPHOCYTES PERCENT MAN 7 % (20-50); MONOCYTES PERCENT MAN 6 % (2-8); SEG NEUTROPHILS PERCENT MAN 87 % (42-75)
[2025-02-26 14:21] LABS: PLATELET COUNT ESTIMATE INCREASED
[2025-02-26] MEDS: VANCOmycin 2 GM in Sodium Chloride 0.9% 500 ML IV ONE (14:27)
[2025-02-26] MEDS: VANCOmycin 1 GM SDV ONE (14:28)
[2025-02-26 18:05] VITALS: BP 104/40; PULSE 98
== END 2025-02-26 17:55 ==
LOC: DL.ED 12:59
DX: L03.312 Cellulitis of back [any part except buttock and flank] (principal); I10 Essential (primary) hypertension; E11.9 Type 2 diabetes mellitus without complications; Z88.8 Allergy status to other drugs, medicaments and biological substances; Z79.899 Other long term (current) drug therapy
CPT/HCPCS: 36415; 74177; 80053; 83605; 83735; 85025; 86140; 87040; 87070; 96365; 96366; 99285; J7040; J7120; Q9967; 87077; 87186

== ENCOUNTER 2025-03-13 12:32 | Emergency (ER) | payer MEDICARE, MEDICAID ==
[2025-03-13] MEDS: 50% Dextrose in Water 50 ML Syringe ONE (12:34)
[2025-03-13 12:57] LABS: HEMATOCRIT 29.4 % (37.0-47.0); HEMOGLOBIN 9.2 g/dL (12.0-16.0); MEAN CORPUSCULAR HEMOGLOBIN 27.5 pg (27.0-34.0); MEAN CORPUSCULAR HGB CONC 31.3 g/dL (33.0-35.0); MEAN CORPUSCULAR VOLUME 87.8 fL (80-100); PLATELET COUNT,PLT 389 10^3/uL (150-450); RED BLOOD CELL COUNT 3.35 10^6/uL (4.2-5.4); WHITE BLOOD CELL COUNT,WBC 10.9 10^3/uL (5.0-10.0)
[2025-03-13 12:58] LABS: MONOCYTES PERCENT AUTO 10.8 % (2-8); NEUTROPHILS PERCENT AUTO 73.7 % (42.2-75.2)
[2025-03-13 12:59] LABS: BASOPHILS PERCENT AUTO 0.2 % (0.0-1.0); EOSINOPHILS PERCENT AUTO 1.3 % (1.0-3.0)
[2025-03-13 13:05] LABS: ANION GAP 12.6 mEq/L (7-13); BLOOD UREA NITROGEN,BUN 12 mg/dL (7-18); C-REACTIVE PROTEIN 3.86 ng/dL (<=0.50); CALCIUM 9.7 mg/dL (8.5-10.1); CARBON DIOXIDE,CO2 26 mmol/L (21-32); CHLORIDE,CL 104 mmol/L (98-107); CREATININE 0.79 mg/dL (0.55-1.02); ESTIMATED GFR 73 mL/min (>=60); POTASSIUM,K 3.6 mmol/L (3.5-5.1); SODIUM,NA 139 mmol/L (136-145)
[2025-03-13 13:06] LABS: GLUCOSE RANDOM 41 mg/dL (70-99)
[2025-03-13 13:18] LABS: EOSINOPHILS PERCENT MAN 1 % (1-3); LYMPHOCYTES PERCENT MAN 11 % (20-50); MONOCYTES PERCENT MAN 5 % (2-8); SEG NEUTROPHILS PERCENT MAN 83 % (42-75)
[2025-03-13] MEDS: Magnesium Sulfate 2 GM/50 mL 2 GM in Premix Bag 1 BAG IV ONE ×2 (13:19→13:51)
[2025-03-13 13:23] VITALS: BP 167/95; PULSE 91
[2025-03-13 13:42] LABS: APPEARANCE,URINE SLIGHTLY CLOUDY (CLEAR); BILIRUBIN,URINE NEGATIVE (NEGATIVE); COLOR,URINE YELLOW (YELLOW); GLUCOSE,URINE NEGATIVE (NEGATIVE); KETONES,URINE NEGATIVE (NEGATIVE); LEUKOCYTE ESTERASE,URINE TRACE (NEGATIVE); NITRITE,URINE NEGATIVE (NEGATIVE); OCCULT BLOOD,URINE TRACE-INTACT (NEGATIVE); PROTEIN,URINE 100 (NEGATIVE); UROBILINOGEN,URINE 0.2 mg/dL (0.2-1.0)
[2025-03-13 13:59] LABS: BACTERIA,URINE FEW /HPF (0-FEW/HPF); CALCIUM OXALATE CRYSTALS,URINE RARE /HPF (NOT SEEN); EPITHELIAL CELLS,URINE NOT SEEN /HPF (NOT SEEN); HYALINE CASTS,URINE RARE; RBC,URINE 0-5 /HPF (0-5); WBC,URINE SEMI-PACKED /HPF (0-5/HPF); YEAST,URINE MODERATE /HPF (NOT SEEN)
== END 2025-03-13 14:28 | disposition home or self-care (01) ==
LOC: DL.ED 12:32
DX: E83.42 Hypomagnesemia (principal); N30.00 Acute cystitis without hematuria; E83.51 Hypocalcemia; E78.00 Pure hypercholesterolemia, unspecified; I10 Essential (primary) hypertension; E11.9 Type 2 diabetes mellitus without complications; Z91.048 Other nonmedicinal substance allergy status; Z79.899 Other long term (current) drug therapy; Z86.16 Personal history of COVID-19
CPT/HCPCS: 36415; 80048; 81001; 82947; 83735; 85025; 86140; 87086; 87088; 87186; 96365; 99284; 99285; J3475